=== PATIENT | male | born 1980 | race Caucasian/White ===

== ENCOUNTER 2025-03-28 06:45 | Day surgery (SDC) | payer BC, SELFPAY ==
[2025-03-26 16:00] VITALS: BMI 29.7
[2025-03-28 06:59] VITALS: BP 136/81; PULSE 74; RESP 16; TEMP 36.2; O2SAT 99
[2025-03-28] MEDS: LACTATED RINGERS 1000ML 1,000 ML 50 ML IV (07:08)
--- NOTE | 2025-03-28 07:12 | P.PNANES_ITS ---
[facility] Disclaimer: The information contained in this section may have been updated after the patient was seen, as this information can be updated by other users. Medical History Bipolar II disorder Surgical History No history of previous surgery Family History Other Family history non-contributory Social History Smoking Status: Never smoker alcohol intake: never substance use type: denies use current occupational status: employed Travel in the last 8 weeks?: None caffeine: No Have you lived/traveled outside US in past 30 days?: No Contact w/someone who lives/traveled outside US past 30 days?: No Exposure to someone with infectious disease in past 14 days?: No Do you have a fever (greater than 100.4 F or 38 C)?: No Have you tested positive for COVID-19?: No Exposed to someone with COVID-19 in past 14 days?: No Do you have a sore throat?: No Do you have a cough?: No Do you have any weakness?: No Are you experiencing any nausea/vomitting?: No Do you have any diarrhea?: No Are you experiencing any unusual bleeding?: No Do you have any muscle aches/pain?: No Do you have any abdominal pain?: No Are you experiencing loss of taste or smell?: No [facility] Anesthesia Checklist Patient Identification Patient Identification: Arm Band and Verbal (Name & ) Structural Data Admitted From: Home Planned Operative Procedure/s: colonscopy Consent for Planned Operative Procedure(s) Verified: Yes Verified Documents: Surgical Consent and History and Physical NPO Status Verified Time NPO: 00:00 Additional verifications Anesthesia Reactions: No Airway Assessment Mallampati Score:: Class II Dentition: Good Dentition Neurological Assessment Level of Consciousness: Awake, Alert and Appropriate Hx Seizures: No Numbness or tingling in extremities: No Anesthesia Plan Anesthesia Risk discussed: Yes Anesthesia Plan: Verified ASA Class: I Anesthesia Type: MAC
--- NOTE | 2025-03-28 07:48 | EXP.HP ---
History of Present Illness *Admission Date: 03/28/25 *Reason for visit:: Dysphagia and screening *History of present illness: Mr. Gomez is a 45-year-old gentleman who is here for diagnostic EGD and screening colonoscopy. He has had dysphagia. He does get food hanging up with true dysphagia. He also has some globus sensation with a sense of a lump in his throat. He reports no frequent clearance of the throat or throat clearing or coughing. This does occur primarily with solid foods. He did have an EGD with dilation 4 to 5 years ago with in in [place]. He reports no significant heartburn or reflux unless he eats a large amount of sugar/sucrose/dairy in the evenings and this especially occurs with ice cream or M&Ms. He does not have daily heartburn. He reports no significant bloating, belching, gassiness or bowel irregularity. He does get some bowel frequency but this is not new. He reports no rectal bleeding, abdominal pain, weight loss or family history of colon cancer. He has never had screening colonoscopy. [facility] Disclaimer: The information contained in this section may have been updated after the patient was seen, as this information can be updated by other users. Medical History Bipolar II disorder Surgical History No history of previous surgery Family History Other Family history non-contributory Social History Smoking Status: Never smoker alcohol intake: never substance use type: denies use current occupational status: employed Travel in the last 8 weeks?: None caffeine: No Have you lived/traveled outside US in past 30 days?: No Contact w/someone who lives/traveled outside US past 30 days?: No Exposure to someone with infectious disease in past 14 days?: No Do you have a fever (greater than 100.4 F or 38 C)?: No Have you tested positive for COVID-19?: No Exposed to someone with COVID-19 in past 14 days?: No Do you have a sore throat?: No Do you have a cough?: No Do you have any weakness?: No Are you experiencing any nausea/vomitting?: No Do you have any diarrhea?: No Are you experiencing any unusual bleeding?: No Do you have any muscle aches/pain?: No Do you have any abdominal pain?: No Are you experiencing loss of taste or smell?: No Review of Systems Review of Systems Review of systems (narrative): Negative *Cardiovascular Comments: Negative *Gastrointestinal Comments: Negative *Genitourinary Comments: Negative *Musculoskeletal Comments: Negative *Neurologic Comments: Negative Meds Home Medications and Allergies Home Medications ?Medication ?Instructions ?Recorded ?Confirmed ?Type lithium carbonate 600 mg capsule 600 mg PO DAILY 02/19/25 03/28/25 History trazodone 50 mg tablet 25 mg PO HS 02/19/25 03/28/25 History [id number] 140 gram-sod sulfate 9 500 ml PO .COMPLEX colonscopy #3 ea 02/21/25 Rx gram-NaCl 5.2gram-KCl-C oral pwdr packs (Plenvu) New Prescriptions to Start Prescriptions: Allergies Allergy/AdvReac Type Severity Reaction Status Date / Time No Known Allergies Allergy Verified 03/28/25 06:58 Exam Data for Last 24 hours Vital signs and Labs for Last 24 Hours: Temp Pulse Resp BP Pulse Ox O2 Del Method 97.1 F L 74 16 136/81 99 Room Air 03/28/25 06:59 03/28/25 06:59 03/28/25 06:59 03/28/25 06:59 03/28/25 06:59 03/28/25 06:59 I & O for Last 24 hours: Intake & Output 03/25/25 03/26/25 03/27/25 03/28/25 23:59 23:59 23:59 23:59 Weight 201 lb *Routine HEENT Exam Head: Present normocephalic Eye: Present EOMI and PERRL ENT: Present mucous membranes moist *Routine Neck Exam Neck: Present supple *Routine Respiratory Exam Respiratory: Present CTA bilaterally *Routine Cardiovascular Exam Cardiovascular: Present RRR *Routine Abdominal Exam Abdominal: Present soft and normoactive bowel sounds; Absent tenderness *Routine Rectal Exam Rectal:: deferred *Routine Genitalia Exam Genitalia:: deferred *Routine Extremities Exam Extremities: Absent cyanosis, clubbing or edema *Routine Skin Exam Skin: Present warm; Absent rash *Routine Neurological Exam Neurological: Present alert and oriented X3 Assessment and Plan *Assessment and plan (1) Screening for colorectal cancer: Status: Acute Category: Medical Code(s): Z12.11 - Encounter for screening for malignant neoplasm of colon; Z12.12 - Encounter for screening for malignant neoplasm of rectum (2) Dysphagia: Status: Acute Category: Medical Code(s): R13.10 - Dysphagia, unspecified (3) Globus sensation: Status: Acute Category: Medical Code(s): R09.A2 - Foreign body sensation, throat Plan A/P: 1. Dysphagia for upper endoscopy and screening for colon cancer for colonoscopy is the preprocedural diagnosis. The patient will be anesthetized/sedated using MAC sedation. The patient has been seen and examined. Cardiac and lung assessment prior to the examination is stable. Proceed with planned EGD and colonoscopy.
--- NOTE | 2025-03-28 07:49 | HMH.PROCNOTE ---
[facility] Procedure Note Date: 03/28/25 Time: 07:53 Procedure Note:: Upper Endoscopy Procedure Report: Esophagogastroduodenoscopy with cold biopsies and TTS balloon dilation Endoscopost: Donell Bauer II, MD Referring Physician: Judson Cagle MD, [address] [place] [id number] Date of Procedure: March 28, 2025 Equipment: Olympus GIF 190 standard upper endoscope Sedation: MAC sedation Indications: Mr. Gomez is a 45-year-old gentleman who is here for diagnostic EGD and screening colonoscopy. He has had dysphagia. He does get food hanging up with true dysphagia. He also has some globus sensation with a sense of a lump in his throat. He reports no frequent clearance of the throat or throat clearing or coughing. This does occur primarily with solid foods. He did have an EGD with dilation 4 to 5 years ago with wa in [place]. He reports no significant heartburn or reflux unless he eats a large amount of sugar/sucrose/dairy in the evenings and this especially occurs with ice cream or M&Ms. He does not have daily heartburn. He reports no significant bloating, belching, gassiness or bowel irregularity. He does get some bowel frequency but this is not new. He reports no rectal bleeding, abdominal pain, weight loss or family history of colon cancer. He has never had screening colonoscopy. Procedure: Prior to the procedure, a history and physical exam was performed, and patient's medications and allergies were reviewed. The risks, benefits and alternatives of the sedation and procedure were discussed with the patient. All questions were answered and informed consent was obtained. The patient was brought to the procedure room. Patient identification and proposed procedure were verified by the physician and the nurse. The patient was placed in a left lateral decubitus position and the scope was passed under direct vision. Throughout the procedure, the patient's blood pressure, pulse, and oxygen saturations were monitored continuously. The upper GI endoscopy was accomplished without difficulty. The patient tolerated the procedure well. Findings: The scope was passed directly into the upper esophagus and advanced to the fourth portion of duodenum and proximal jejunum. A cold biopsy was taken from the fourth portion of duodenum for disaccharidase assay. The proximal jejunum, post bulbar duodenum, ampulla and duodenal bulb were normal with normal mucosa and conniventes. The scope was withdrawn through a normal duodenal bulb and pylorus into the stomach. There was some bile reflux with mild linear reactive gastropathy of the antrum. The body and fundus of the stomach were normal. Upon retroflexion there was no hiatal hernia. Cold biopsies were taken from the antrum to rule out H. pylori. The scope was then withdrawn into the esophagus. There is no evidence of reflux esophagitis or Maria's. There was no rings, strictures, corrugation, furrowing or inlet patch. There was no Rachna. There were strong tertiary contractions and evidence of mild esophageal dysmotility. The entire esophagus was dilated to 60 [place]/20 mm with a TTS hydrostatic balloon. There was mild resistance at the cricopharyngeus. The remainder of the esophageal mucosa was normal. Impression: 1. Cricopharyngeal spasm status post dilation to 20 mm 2. Nonerosive GERD with mild esophageal dysmotility 3. Bile reflux with mild linear reactive gastropathy Plan: I will follow-up the biopsies and discuss the findings with the patient and family. 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 We will discuss treatment options. I will proceed with screening colonoscopy.
--- NOTE | 2025-03-28 08:04 | HMH.PROCNOTE ---
[facility] Procedure Note Date: 03/28/25 Time: 08:17 Procedure Note:: Colonoscopy Procedure Report: Colonoscopy with cold snare polypectomy Endoscopist: Donell Bauer II, MD Referring physician: Judson Cagle MD, [address] [place] [id number] Date of Procedure: March 28, 2025 Equipment: Olympus 190 variable stiffness pediatric colonoscope Sedation: MAC sedation Indication: Mr. Gomez is a 45-year-old gentleman who is here for initial screening colonoscopy. He reports no abdominal pain, weight loss, change in his bowel habits or rectal bleeding. He reports no family history of colon cancer. He does get some bowel frequency. Procedure: Prior to the procedure, a history and physical exam was performed, and patient's medications and allergies were reviewed. The risks, benefits and alternatives of the sedation and procedure were discussed with the patient. All questions were answered and informed consent was obtained. The patient was brought to the procedure room. Patient identification and proposed procedure were verified by the physician and the nurse. The patient was placed in a left lateral decubitus position and the scope was passed under direct vision. Throughout the procedure, the patient's blood pressure, pulse, and oxygen saturations were monitored continuously. The colonoscopy was accomplished without difficulty. The patient tolerated the procedure well. Findings: On digital rectal examination there was normal rectal tone. There were no external hemorrhoids. The prostate was 2+, smooth, soft, symmetric without nodules. The colonoscope was introduced through the anal canal to the rectum and advanced to the cecum. The ileocecal valve and appendiceal orifice were identified. The scope was advanced a short distance into the ileum which appeared grossly normal. The scope was then withdrawn into the colon. There was a single 3 to 4 mm sigmoid colon polyp removed via cold snare polypectomy. The remaining cecum, ascending, transverse, descending, sigmoid and rectum were grossly normal. There were no mucosal abnormalities identified. Upon retroflexion within the rectum there were grade 1 internal hemorrhoids. The preparation was excellent throughout with [place] Preparation Score of 9. The cecal time was 12 minutes. Impression: 1. Diminutive 3 to 4 mm sigmoid colon polyp Plan: I will follow-up the polyp histology and recommend repeat surveillance colonoscopy again in 7 years if the polyp is adenomatous. I would encourage psyllium bulking fiber supplementation on a maintenance basis.
[2025-03-28 08:18] VITALS: BP 111/67; PULSE 55; RESP 18; TEMP 36.2; O2SAT 94
[2025-03-28 08:28] VITALS: BP 107/68; PULSE 56; RESP 16; O2SAT 95
[2025-03-28 08:38] VITALS: BP 106/66; PULSE 54; RESP 16; O2SAT 96
[2025-03-28 08:48] VITALS: BP 105/66; PULSE 59; RESP 18; O2SAT 96
[2025-04-02 16:12] LABS: Interpretation Notes (.); Lactase 32.32 (>/= 14.0); Palatinase 17.5 (>/= 8.5); Reference Notes (.); Sucrase 85.22 (>/= 25.0)
== END 2025-03-28 08:56 | disposition home or self-care (01) ==
PROVIDERS: PCP Internal Medicine; Visit Provider Internal Medicine Gastroenterology
PROC: 0DJ08ZZ Inspection of Upper Intestinal Tract, Via Natural or Artificial Opening Endoscopic (ICD-10-PCS; CPT 45378; principal; 2025-03-28 08:00)
DX: Z12.11 Encounter for screening for malignant neoplasm of colon (principal); K31.89 Other diseases of stomach and duodenum; K21.00 Gastro-esophageal reflux disease with esophagitis, without bleeding; D12.5 Benign neoplasm of sigmoid colon; K64.0 First degree hemorrhoids; K22.4 Dyskinesia of esophagus; F31.81 Bipolar II disorder; Z79.899 Other long term (current) drug therapy
CPT/HCPCS: 43239; 43249; 45385; 82657; C1726; J2003; J2704; J7120